=== PATIENT | male | born 1960 | race Caucasian/White ===

== ENCOUNTER 2017-06-01 11:29 | Emergency (ER) | payer SELFPAY ==
[~2017-06-01] VITALS: Ht 175.3 cm; Wt 89.2 kg
[2017-06-01 11:32] VITALS: BP 178/96
[2017-06-01] MEDS ORDERED: ALBUTEROL SULFATE 2.5 MG/3 ML NPPB ONE (12:00)
[2017-06-01] MEDS ORDERED: ALBUTEROL SULFATE 2.5 MG/3 ML ONE (12:33)
== END 2017-06-01 12:53 | disposition left against medical advice (07) ==
LOC: ED 12:47
DX: J45.909 Unspecified asthma, uncomplicated (principal); I10 Essential (primary) hypertension; Z76.0 Encounter for issue of repeat prescription
CPT/HCPCS: 93005; 99283; J7613